=== PATIENT | male | born 1980 | race Caucasian/White ===

== ENCOUNTER 2021-05-29 10:37 | Emergency (ER) | payer SELFPAY ==
[~2021-05-29] VITALS: Ht 167.6 cm; Wt 86.6 kg
[2021-05-29 10:40] VITALS: BP 122/58
--- NOTE | 2021-05-29 11:04 | NUR ---
41 Y/O BIB FAMILY MEMBER, C/O ABSCESS IN THE LEFT ARMPIT AREA, DARK DISCHARGE NOTED ON THE 2ND DAY, WITH BRIGHT RED BLOOD NOTED TODAY. 2CM DIAMETER ABSCESS WITH REDNESS AND SWELLING AROUND THE AREA. SHARP PINCHING PAIN 9/10 NOTED ON THE AREA RADIATING TO THE CHEST. NAUSEA NOTED AT THE TIME. SUBJECTIVE FEVER AT HOME, TOOK TYLENOL AT 0100H, WITH MINIMAL EFFECT. 98.5 ORAL TEMP AT THIS TIME. NKA PMH; DENIES
--- NOTE | 2021-05-29 11:08 | NUR ---
DR LING AT BEDSIDE
[2021-05-29] MEDS ORDERED: KETOROLAC 60 MG/2 ML VIAL IM ONE (11:15)
[2021-05-29] MEDS ORDERED: IBUP-2213 PO (11:47)
[2021-05-29] MEDS ORDERED: ACET-8386 PO (11:47)
[2021-05-29] MEDS ORDERED: CEPH-588 PO (11:47)
--- NOTE | 2021-05-29 12:14 | NUR ---
Patient discharged with v/s stable. Written and verbal after care instructions given ABOUT SKIN ABSCESS and explained. Patient alert, oriented and verbalized understanding of instructions. Ambulatory with steady gait. All questions addressed prior to discharge. ID band removed. Patient advised to follow up with PMD. Rx of NORCO 5-325, KELFEX,MOTRIN given. Patient educated on indication of medication including possible reaction and side effects. Opportunity to ask questions provided and answered.
== END 2021-05-29 12:14 | disposition home or self-care (01) ==
LOC: MED 10:37
DX: L02.412 Cutaneous abscess of left axilla (principal)
CPT/HCPCS: 96372; 99283; J1885

== ENCOUNTER 2023-05-15 15:30 | Emergency (ER) | payer MEDICAID, OTHER ==
[~2023-05-15] VITALS: Ht 165.1 cm; Wt 84.8 kg
[~2023-05-15 15:30] MED LIST: ACET-8905 PO; CEPH-588 PO; IBUP-2213 PO
[2023-05-15 15:31] VITALS: BP 111/65; PULSE 80; RESP 16; TEMP 97; O2SAT 99
[2023-05-15 16:07] LABS: APPEARANCE,URINE CLEAR (CLEAR); BILIRUBIN,URINE 1+ (NEGATIVE); BLOOD, URINE NEGATIVE (NEGATIVE); COLOR,URINE YELLOW (YELLOW); LEUKOCYTE ESTERASE ,URINE NEGATIVE (NEGATIVE); NITRITE, URINE NEGATIVE (NEGATIVE); PH,URINE 6.5 (5.0-9.0); PROTEIN,URINE NEGATIVE (NEGATIVE); UGLUCOSE NEGATIVE (NEGATIVE)
[2023-05-15 16:13] LABS: BASOPHILS % (AUTO) 0.3 % (0.0-2.0); EOSINOPHILS # (AUTO) 0.1 K/uL (0-0.4); EOSINOPHILS % (AUTO) 1.5 % (0.0-4.0); HEMATOCRIT 48.7 % (36-52); HEMOGLOBIN 16.4 g/dL (12.0-18.0); LYMPHOCYTES # (AUTO) 2.1 K/uL (2.0-11.5); LYMPHOCYTES % (AUTO) 29.1 % (20.5-51.1); MEAN CORPUSCULAR HEMOGLOBIN 27 pg (27-31); MEAN CORPUSCULAR HGB CONC 34 g/dL (33-37); MEAN CORPUSCULAR VOLUME 80.2 fL (80-94); MONOCYTES # (AUTO) 0.7 K/uL (0.8-1.0); NEUTROPHILS # (AUTO) 4.4 K/uL (1.8-7.7); NEUTROPHILS % (AUTO) 60.1 % (42.2-75.2); PLATELET COUNT (AUTO) 186 K/uL (140-450); RED BLOOD CELL COUNT(AUTO) 6.08 MIL/uL (4.20-6.10); RED CELL DISTRIBUTION WIDTH 15.5 % (11.6-13.7); WHITE BLOOD COUNT (AUTO) 7.4 K/uL (4.8-10.8)
[2023-05-15 16:14] LABS: ICTOTEST NEGATIVE (NEGATIVE)
[2023-05-15 16:15] LABS: BACTERIA,URINE None Seen /HPF (None Seen); MUCUS,URINE 1+ /LPF (None Seen); RBC,URINE 0-5 /HPF (0-5); TRICHOMONAS,URINE None Seen /HPF (None Seen); WBC,URINE 0-5 /HPF (0-5); YEAST,URINE None Seen /HPF (None Seen)
[2023-05-15 16:32] LABS: CALCIUM 8.8 mg/dL (8.5-10.1); CARBON DIOXIDE 28.4 mmol/L (21-32); CREATININE 0.9 mg/dL (0.6-1.3); POTASSIUM 3.4 mmol/L (3.5-5.1)
[2023-05-15 16:39] LABS: ALBUMIN 4.1 g/dL (3.4-5.0); BILIRUBIN,DIRECT 0.3 mg/dL (0.0-0.3); TOTAL BILIRUBIN 1.6 mg/dL (0.0-1.0); TOTAL PROTEIN, SERUM 7.6 g/dL (6.4-8.2)
[2023-05-15 18:22] VITALS: BP 119/67; PULSE 72; RESP 18; TEMP 97.2; O2SAT 98
== END 2023-05-15 18:22 | disposition home or self-care (01) ==
LOC: MED 15:30
DX: R10.32 Left lower quadrant pain (principal); R74.01 Elevation of levels of liver transaminase levels; E80.6 Other disorders of bilirubin metabolism; Z79.899 Other long term (current) drug therapy
CPT/HCPCS: 36415; 74177; 80048; 80076; 81001; 83690; 85025; 99285; Q9967